=== PATIENT | female | born 1955 | race Caucasian/White ===

== ENCOUNTER → 2018-09-24 08:47 | Outpatient (CLI) | payer OTHER, SELFPAY ==
[2018-09-24 13:16] LABS: Cholesterol 218 mg/dL (200); Glucose 84 mg/dL (74-106); High Density Lipoprotein 62 mg/dL; T4 Free Direct 0.81 ng/dL (0.76-1.46); Thyroid Stim Hormone (TSH) 0.95 uIU/mL (0.358-3.74); Triglycerides 94 mg/dL; Very Low Density Lipoprotein 19 mg/dL (5-40)
== END ==
PROVIDERS: Family Provider Family Medicine; PCP Family Medicine; Visit Provider Family Medicine
DX: F41.9 Anxiety disorder, unspecified (principal); Z13.1 Encounter for screening for diabetes mellitus; Z13.220 Encounter for screening for lipoid disorders
CPT/HCPCS: 36415; 80061; 82947; 84439; 84443

== ENCOUNTER → 2018-11-23 16:06 | Outpatient (CLI) | payer OTHER, SELFPAY ==
[2018-09-29 09:33] VITALS: BMI 28.0
--- NOTE | 2018-11-23 | IMM_PTH ---
PATIENT: IVON LAGUNAS LOC: [facility] U#:[id number] AGE/SX: 70/F ROOM: RE11/23/[address]: Dr. George Karimi MD : 1955 BED: DIS: SPEC #: [id number] RECD: 11/25/18 10:07 STATUS: EZEKIEL REQ #: [id number] ELYSE: 11/23/18 00:[address]: George Karimi DEPT: IMMUNOHISTOCHEMISTRY RECD BY: Loretta Montero ENTERED: 11/25/18 10:09 SP TYPE: IMMUNO OTHR DR: Dr. Jayson Hooks MD Tissues: Left breast, NOS Procedures: CALPONIN-1 (add) CK5-6 (add) CK8 (add) E-CAD (add) HER2 ELIA (add) KI-67 (add) P53 (add) VA (add) P40 (add) ER (initial) PHYSICIAN & INSTITUTION [address] [address] SPECIMEN INFORMATION: Tissue Source: Left breast Clinical Info: Abnormal mammogram Specimen Number: [id number] CPT code: 04386, 99284 x6, 67169 x3 METHODOLOGY: Deparaffinized sections of prefer/formalin-fixed tissue or PAP/DQ stained slides are incubated with monoclonal/polyclonal antibodies/oligonucleotide probes. Localization is made via biotin free immunoperoxidase method. Appropriate controls are performed and reacted as expected. Results on target cell population are indicated in the following table: RESULTS: ANTIBODY / CLONE RESULT P53 (DO-7) positive, 5% Ki-67 (30-9) positive, low CK8 (82vqegZ74) positive CK5-6 (D5 & 1684) negative Calponin-1 (WD221I) negative P40 (BC28) negative E-Cad (ECH-6) positive MORPHOMETRIC ANALYSIS ER (clone 6F11) >95% VA (clone 16/1E2) >95% Her-2Neu (clone CB11) 0 The prognostic test for HER2 is performed on formalin-fixed paraffin embedded tissue. A 3+ (positive) staining pattern is defined as intense, homogeneous, complete, circumferential membranous staining in >10% of contiguous tumor cells. A similar weak (2+) staining pattern is interpreted as equivocal. ALEX follow-up testing is recommended for all equivocal cases. Positivity/negativity for ER/VA is reported if > or < 1% of the tumor cells are immuno- reactive, respectively. The ASCO/CAP criteria is used for scoring. Reference: Journal of Clinical Oncology, 2013; 31:6071-0730 & 2010; 16:9520-0263. Duration of fixation: 28.5 Hrs; Sample Adequate: Yes. These assays have not been validated on decalcified tissues. Results should be interpreted with caution given the likelihood of false negativity on decalcified specimens. These tests were developed and their performance characteristics determined by [facility]. They may not have been cleared or approved by the U.S. Food and Drug Administration. The FDA has determined that such clearance or approval is not necessary. INTERPRETATION: Left breast, ultrasound-guided core biopsy: Invasive ductal carcinoma, nuclear grade 2. Positive for estrogen receptors (favorable prognostic indicator). Positive for progesterone receptors (favorable prognostic indicator). Negative for overexpression of JXN0sut. AM:jose 11/25/18
--- NOTE | 2018-11-23 | BRBX_PTH ---
PATIENT: IVON LAGUNAS LOC: [facility] U#:[id number] AGE/SX: 70/F ROOM: RE11/23/[address]: Dr. George Karimi MD : 1955 BED: DIS: SPEC #: [id number] RECD: 11/23/18 16:00 STATUS: EZEKIEL RETushar #: [id number] ELYSE: 11/23/18 00:[address]: George Karimi DEPT: SURGICAL PATHOLOGY RECD BY: Jareth Spencer ENTERED: 11/24/18 10:08 SP TYPE: BREAST BX OTHR DR: Dr. Jayson Hooks MD Tissues: Left breast, NOS Procedures: Surgery Specimen Level IV HEADER OPERATION: Ultrasound-guided left breast biopsy PRE-OP DIAGNOSIS: Abnormal mammogram TISSUE SUBMITTED: Left breast needle core ISCHEMIC TIME: 2 minutes FIXATION TIME: 28.5 hours MICROSCOPIC DIAGNOSIS Left breast lesion, ultrasound-guided core biopsy: Invasive ductal carcinoma with the following characteristics: Nuclear grade - 2/3 Maximal length - 5 mm Other findings - ductal carcinoma in situ, solid and cribriform type, nuclear grade 2. AM:jose 11/25/18 COMMENT Ductal carcinoma in situ comprises approximately 10% of the total tumor volume (inclusive of invasive carcinoma). ER/MI/Sbl1ysp studies are being performed on sections of tumor and the results from this study will be reported separately ([id number]). Case has been reviewed in consultation with Dr. Lebron who concurs with the above diagnosis. IDC:CIRA MICROSCOPIC DESCRIPTION Slides are reviewed. GROSS DESCRIPTION Received is one container labeled with the patient's name and not further designated. The specimen consists of multiple elongated fragments of rankin-yellow fibroadipose tissue that in aggregate measure 1.5 x 1 x 0.1 cm. The entire specimen is submitted in one cassette. / CIRA:jose 11/24/18 TC:0 CPT: 32622
== END ==
PROVIDERS: Family Provider Family Medicine; PCP Family Medicine; Referring Provider Surgery; Visit Provider Surgery
DX: R92.8 Other abnormal and inconclusive findings on diagnostic imaging of breast (principal)
CPT/HCPCS: 88305; 88341; 88342

== ENCOUNTER 2019-01-24 08:07 | Day surgery (SDC) | payer OTHER, SELFPAY ==
--- NOTE | 2019-01-21 14:29 | HP.PCM_ITS ---
History and Physical Date of Admission: 01/24/19 HISTORY AND PHYSICAL - BREAST CANCER Ana Maria Lal 1955 December 28, 2018 REFERRING PHYSICIAN: Jayson Hooks MD CHIEF COMPLAINT: BREAST CANCER - LEFT - INVASIVE DUCTAL CARCINOMA HPI: Ana Maria is a patient I am following for abnormal left breast imaging. The patient is a 63 year old female with a complaint of an abnormal mammogram. The patient had a mammogram with ultrasound on October 20, 2018 with follow-up imaging on November 17, 2018 which demonstrated: IMPRESSION: HIGHLY SUGGESTIVE OF MALIGNANCY - APPROPRIATE ACTION SHOULD BE TAKEN The 9 mm irregular equal density mass in the left breast is consistent with carcinoma and is highly suggestive of malignancy. An ultrasound guided biopsy is recommended. There is 0.9 cm x 0.7 cm x 0.9 cm irregular mass with an angular margin in the left breast at 11 o'clock posterior depth 9 cm from the nipple. This irregular mass is hypoechoic with an abrupt boundary and posterior acoustic shadowing. This correlates with mammography findings. There is a single borderline thickened lymph node in the axilla. The patient denies a history of breast masses. She does perform a self breast exam routinely. She notes no skin changes. She denies nipple discharge. She notes no axillary masses. She notes no family history of breast problems. She notes no significant breast trauma or breast difficulties in the past. I performed a ultrasound guided core biopsy of the left breast biopsy for her abnormal mammogram on November 23, 2018. The pathology returned as: Invasive ductal carcinoma, grade 2 out of 3. DCIS was also noted in the specimen. Immunohistochemical markers were positive for estrogen progesterone, negative for her HER-2/levi The patient notes some bruising since the procedure. Ultrasound of the left axilla was performed. I felt I was able to demonstrate the lymph node that was somewhat enlarged but this did not look overtly suspicious. We extensively discussed her diagnosis and at the last visit discussed her surgical options including breast conservation surgical procedures, mastectomy without reconstruction and mastectomy with reconstruction. The patient has elected to undergo a left side needle localization biopsy/lumpectomy with sentinel lymph node biopsy with possible axillary dissection. Given the question of a atypical lymph node in the axilla and relatively dense breasts, we elected to obtain breast MRI. This demonstrated: IMPRESSION: SUSPICIOUS FINDING - BIOPSY SHOULD BE CONSIDERED RIGHT BREAST: BI-RADS 4 1. 7mm oval mass in the central / slightly outer breast, posterior depth with persistent kinetics. Second look ultrasound is recommended. If there is no sonographic correlate, MRI guided biopsy is recommended. 2. 5mm focus of enhancement slightly anterior and medial to the above mass with washout kinetics. MRI guided biopsy is recommended. If this finding is not re-demonstrated on the day of biopsy, six month follow up would then be recommended. LEFT BREAST: BI-RADS 4 1. Susceptibility artifact from the biopsy proven carcinoma in the upper inner quadrant, posterior depth. Surgical consult is recommended. 2. 8mm oval mass at 3 o'clock posterior depth with washout and plateau kinetics. Second look ultrasound is recommended. If no correlate is seen, MRI guided biopsy is recommended. 3. 1.0cm linear area of non-mass enhancement with washout kinetics slightly inferior to the above mass. MRI guided biopsy is recommended. 4. Two mildly prominent appearing axillary nodes. Surgical consultation Recommended. Second look ultrasound was obtained which was able to rule out one of the sites but repeat MRI guided biopsies were performed in both the right and left breasts. These demonstrated all benign findings. Specifically the pathology returned as: FINAL DIAGNOSIS 1. Breast, left, superior, MRI-guided core biopsy with hourglass clip placement (A) - Fibrofatty breast tissue with columnar cell change, usual ductal hyperplasia, microcysts, stromal fibrosis and microcalcifications. 2. Breast, left, inferior, MRI-guided core biopsy with cork clip placement (B) - Predominantly benign fibrofatty breast tissue. FINAL DIAGNOSIS Right breast, MRI guided core needle biopsy without hourglass clip placement Predominantly fibroadipose tissue with focal usual ductal hyperplasia, columnar cell change and associated microcalcifications. DEBRA/HILL/jaquan 12/27/2018 PAST MEDICAL HISTORY PAST SURGICAL HISTORY CURRENT MEDICATIONS ALLERGIES: Patient has no known allergies. PERSONAL HISTORY: SOCIAL HISTORY FAMILY HISTORY: FAMILY HISTORY REVIEW OF SYMPTOMS: The review of systems data was entered by the nurse and reviewed by ky Nursing Notes: Cayetano Winslow LPN 12/28/2018 1:49 PM Signed REVIEW OF SYSTEMS: General: The patient notes fatigue, denies weight loss, denies weight gain, denies feeling hot, and denies feelings of cold. Eyes: The patient denies glaucoma, NOTES eye injury/surgery, wears glasses or contacts. Ear/Nose/Throat: The patient denies allergies, denies hayfever, denies ear infections, and denies bloody noses. Cardiovascular: The patient denies chest pain, denies heart disease, denies high blood pressure,denies cardiac stent, denies prior heart attack, denies irregular heart beat, NOTES high cholesterol, denies poor circulation, denies heart failure, other cardiac issues, denies claudication, denies cold feet, denies peripheral arterial stent. Respiratory: The patient denies tuberculosis, denies pneumonia, denies frequent cough, denies pulmonary embolism, denies shortness of breath, and denies cough ing up blood. Gastrointestinal: The patient denies difficulty swallowing, denies acid reflux, denies ulcers, denies vomiting, denies jaundice/hepatitis, denies gallbladder problems, denies black or tarry stools, denies hemorrhoids, denies bleeding from rectum, denies diverticulitis, denies constipation, denies diarrhea, denies loss of stool control, and denies hernias. Kidney/Bladder: The patient denies kidney stones, denies urine infections, and denies bloody urine. Skin: The patient denies a history of skin cancer, denies bleeding/changing moles, and denies a history of skin rash. Neurologic: The patient denies a history of epilepsy/convulsions, denies headaches, denies head/spinal injuries, and denies stroke/TIA. Psychiatric: The patient denies psychiatric medications, denies depression, and denies voices, denies substance abuse. Endocrine: The patient denies thyroid disorders, denies diabetes, and denies hormonal problems. Hematologic: The patient denies a history of bruising, denies bleeding, and denies anemia, denies blood clots. Infections: The patient denies a history of measles and mumps, denies rheumatic fever, and denies sexually transmitted diseases. Musculoskeletal: The patient denies back pain/injury, denies back problems, denies sciatica, denies knee/foot trouble, denies arthritis, or denies gout. PHYSICAL EXAMINATION: General: The patient is 63 year old female, well nourished, well hydrated in no acute distress. The patient is oriented to time, place, and person. VITALS: Blood pressure 138/74, pulse 76, temperature 36.5 ?C (97.7 ?F), temperature source Temporal Artery, height 157.5 cm (5' 2), weight 68.3 kg (150 lb 9.6 oz), SpO2 96 %. Body mass index is 27.55 kg/m?. HEENT: Normal cephalic, ataumatic, pupils are equally round, sclera are ani cteric, mucous membranes are moist, oropharynx is clear. Neck has no masses, asymmetry or lymphadenopathy. Thyroid is unremarkable. Respiratory: Clear to auscultation and percussion. Normal respiratory excursion and pattern. Cardiac: Examination is regular rate and rhythm. Abdominal exam: Soft, nontender, with no palpable masses. No hepatosplenomegaly. No palpable hernias. Rectal exam: exam deferred Extremities: no clubbing, cyanosis or edema. No adenopathy. Breast: Visual inspection reveals no retractions, nipple inversion, or skin changes. Palpation of the right breast reveals no dominant or suspicious masses and there is bruising at the biopsy site. Palpation of the left breast reveals no dominant or suspicious masses and the mass of concern at the 11 oclock position has healed without any further bruising at the biopsy site. The lateral breast biopsy sites have significant bruising at both sites. Axillary exam demonstrates no suspicious masses in either the left or right axilla. There is no nipple discharge expressed from either the left or right breast. LABORATORY VALUES: As Noted RADIOLOGIC STUDIES: As Noted Assessment IMPRESSION: BREAST CANCER - LEFT - INVASIVE DUCTAL CARCINOMA PLAN: I plan to perform a left side needle localization biopsy/lumpectomy with sentinel lymph node biopsy with possible axillary dissection. The planned surgical procedure was discussed extensively with the patient. The risks, benefits, anticipated outcomes and possible complications and alternatives were discussed. My staff has also explained the procedure in understandable terms and the patient was given the option to take printed material concerning the planned procedure. The patient had the opportunity to ask questions concerning the planned procedure. The patient freely consents to the planned procedure. A letter was sent to Dr. Jayson Hooks MD indicating the above finding for this patient. Given her bruising, I will plan to perform her surgical procedure likely at [facility] on January 24. I anticipate that her bruising will have resolved by that time. Anticipated Surgical Procedure/ CPT Code: left preoperative stereotactic guided needle placement - 82991 LUMPECTOMY, WITH SENTINEL LYMPH NODE BIOPSY, Radiotracter identification - [id number], [id number], [id number], [id number], [id number] Anticipated Anesthetic: General Patient weight: Blood pressure 138/74, pulse 76, temperature 36.5 ?C (97.7 ?F), temperature source Temporal Artery, height 157.5 cm (5' 2), weight 68.3 kg (150 lb 9.6 oz), SpO2 96 %. BMI: Body mass index is 27.55 kg/m?. Planned antibiotic: Ancef 2gm IVPB administration vice president to OR SCDs needed - Yes Flame Cutting Supervisor Needed - Yes Diagnoses: (C80.1) Ductal carcinoma (HCC) (primary encounter diagnosis) Return to Clinic: The patient is instructed to follow-up with me 1 week post operatively. George Karimi MD
[2019-01-24] VITALS (10 sets, daily range): BP systolic 116–133; BP diastolic 45–55; PULSE 62–82; RESP 16–18; TEMP 36.2–36.8; O2SAT 94–100; BMI 26.5
--- NOTE | 2019-01-24 | AXNB_PTH ---
PATIENT: IVON LAGUNAS LOC: [facility] [place] U#:[id number] AGE/SX: 64/F ROOM: RE01/24/[address]: Dr. George Karimi MD : 1955 BED: DIS: 01/25/2019 SPEC #: [id number] RECD: 01/24/19 12:01 STATUS: EZEKIEL RETushar #: [id number] ELYSE: 01/24/19 00:[address]: George Karimi DEPT: SURGICAL PATHOLOGY RECD BY: Loretta Montero ENTERED: 01/24/19 12:25 SP TYPE: AX NODE BX OTHR DR: Dr. Jayson Hooks MD Tissues: A - Axillary lymph node, NOS B - Left breast, NOS Procedures: Frozen Section (charge) Frozen Section Add'l ([facility]) Surgery Specimen Level V HEADER OPERATION: Breast, NL lumpectomy, SN biopsy with Neoprobe PRE-OP DIAGNOSIS: Left breast ductal carcinoma TISSUE SUBMITTED: A - Left sentinel node frozen section at 1155, B - Left lumpectomy sent to mammography then to lab, double tail suture - medial, single tail suture - inferior FROZEN SECTION DIAGNOSIS A. Left axillary sentinel lymph nodes, biopsy: Two out of two lymph nodes negative for carcinoma. AM:jose 01/24/19 MICROSCOPIC DIAGNOSIS A. Left axillary sentinel lymph node, biopsy: Two out of two lymph nodes, negative for metastatic carcinoma. See comment. B. Left breast, lumpectomy: Invasive ductal carcinoma. Ductal carcinoma in situ. See cancer summary below. SJ:jose 01/26/19 INVASIVE BREAST CANCER SUMMARY: (Including specimens A & B) Specimen - partial breast Procedure - excision with wire-guided localization. Lymph node sampling - sentinel lymph nodes Specimen integrity - single intact specimen Specimen size - 6 x 5 x 2.5 cm Specimen laterality - left Tumor site - not specified Tumor size - 1.5 x 0.7 x 0.6 cm Tumor focality - single focus of invasive carcinoma Macroscopic and Microscopic extent of tumor: Skin - invasive carcinoma does not invade into the dermis or epidermis. Nipple - not applicable Skeletal muscle - no skeletal muscle present. Ductal carcinoma in situ (DCIS) - DCIS is present. Extensive intraductal component (EIC) - negative Estimated size (extent) of DCIS - DCIS comprise about 10% of the total tumor volume. Number of blocks with DCIS - 2 Number of blocks examined - 10 Architectural patterns - solid, comedo and cribriform Nuclear grade - grade 2 (intermediate) Necrosis - present, central (expansive comedo necrosis) Lobular carcinoma in situ (LCIS) - not identified Histologic type of invasive carcinoma - invasive ductal carcinoma (no special type) Histologic Grade ([place] grade): Glandular/tubular differentiation - score 3 Nuclear pleomorphism - score 2 Mitotic count - score 1 Overall grade - 2 (score of 6) Margins: Margins uninvolved by invasive carcinoma and ductal carcinoma in situ. Invasive carcinoma and ductal carcinoma in situ are 0.7 cm away from the closest medial margin. Lymph-Vascular invasion - not identified Dermal lymph-vascular invasion - not identified Lymph nodes: Number of sentinel lymph nodes examined - 2 Total number of lymph nodes examined (sentinel and nonsentinel) - 2 Number of lymph nodes with macrometastases, micrometastases and isolated tumor cells - 0 Method of evaluation of sentinel lymph nodes - H & E, multiple levels and IHC. Distant metastasis - not applicable Additional pathologic findings - fibrocystic changes and focal intraductal hyperplasia with atypia. Ancillary studies - previously performed on section of tumor (S1 / [id number]). ER - positive (>95%) SD - positive (>95%) Her2 levi - 0 Microcalcifications - present in ductal carcinoma in situ Clinical history - Please make reference to previous specimen (S1) left breast lesion, ultrasound-guided core biopsy with diagnosis of invasive ductal carcinoma and ductal carcinoma in situ. PATHOLOGIC STAGE: pT1c pN0(sn) Mx The above summary is in compliance with [employer] of [place] Path[employer] (CAP) Cancer Protocols Checklist and [place] Joint Committee on Cancer (AJCC), Staging Manual, 8th Ed. COMMENT A. The lymph nodes are negative for metastatic carcinoma on multiple H & E levels and immunohisto-chemical stains for cytokeratins (UR90-219). Case has been reviewed in consultation with Dr. Rodriguez who concurs with the above diagnosis. IDC:AM MICROSCOPIC DESCRIPTION Slides are reviewed. GROSS DESCRIPTION A - Received fresh for frozen section consultation labeled with the patient's name is a specimen designated left sentinel lymph node. The specimen consists of an irregular fragment of rankin-yellow fibrofatty tissue measuring 2.5 x 2 x 0.7 cm. Dissection reveals two nodules resembling lymph nodes and ranging in size from 0.5 to 1.2 cm in greatest dimension. The nodules are submitted in their entirety for frozen section consultation as follows: 1 - one nodule, 2 - one nodule bisected. / AM: 01/24/19 B - Received fresh for OR consultation labeled with the patient's name is a specimen designated left breast lumpectomy. The specimen consists of a lumpectomy specimen measuring 6 x 5 x 2.5 cm and weighing 33.8 gm. An ellipse of skin is present measuring 3 x 1.2 cm and is free of lesions. A wire is present in the specimen. The specimen is differentially inked as follows: anterior - yellow, posterior - green, superior - blue, inferior - black, medial - red and lateral - orange. Serial sections reveal a whitetan spiculated lesion measuring 1.5 x 0.7 x 0.6 cm. The lesion is located 0.7 cm from its closest (medial) margin of excision. The gross is reviewed with the surgeon in person. No other mass lesions are identified. Serial sections of the mass reveal a metallic clip in its mid portion. The remainder of the breast parenchyma is yellow and fatty. No other lesions are identified. Collaborative Physician sections are submitted as follows: 1 & 2 - perpendicular inked margins, 3 - skin, 4 & 5 - tumor, totally submitted, 610??plastic products sales representative sections of uninvolved breast parenchyma. / AM:jose 01/25/19 TC:0 CPT: 19386 x2, 59129, 86363, 07357 ADDENDUM ADDENDUM ADDENDUM ADDENDUM ADDENDUM ADDENDUM ADDENDUM ADDENDUM 02/21/2019 09:51 ADDENDUM 02/21/2019 09:51 ADDENDUM 02/21/2019 09:51 ADDENDUM 02/21/2019 09:51 ADDENDUM 02/21/2019 09:51 An order for Oncotype testing was received from Dr. Banuelos. This necessitated case review, block and slide selection by pathologist at [facility]. Breast Cancer Recurrence Score = 13 Results of the complete Oncotype testing (Criptext report) are viewable in EMR under: Reports - Pathology - Lab Pathology Report, Scanned.
--- NOTE | 2019-01-24 | IMM_PTH ---
PATIENT: IVON LAGUNAS LOC: [facility] [place] U#:[id number] AGE/SX: 64/F ROOM: RE01/24/[address]: Dr. George Karimi MD : 1955 BED: DIS: 01/25/2019 SPEC #: [id number] RECD: 01/26/19 13:33 STATUS: EZEKIEL REQ #: [id number] ELYSE: 01/24/19 00:[address]: George Karimi DEPT: IMMUNOHISTOCHEMISTRY RECD BY: Loretta Montero ENTERED: 01/26/19 13:34 SP TYPE: IMMUNO OTHR DR: Dr. Jayson Hooks MD Tissues: Axillary lymph node, NOS Procedures: CK7 (add) Pankeratin (initial) Pankeratin (add) PHYSICIAN & INSTITUTION [place] [address] SPECIMEN INFORMATION: Tissue Source: A - Left axillary sentinel lymph nodes, biopsy Clinical Info: Left breast ductal carcinoma Specimen Number: [id number] A1 & A2 CPT code: 93270, 26827 x3 METHODOLOGY: Deparaffinized sections of prefer/formalin-fixed tissue or PAP/DQ stained slides are incubated with monoclonal/polyclonal antibodies/oligonucleotide probes. Localization is made via biotin free immunoperoxidase method. Appropriate controls are performed and reacted as expected. Results on target cell population are indicated in the following table: RESULTS: ANTIBODY / CLONE RESULT Block A1 AE1-3 (AE1/AE3/PCK26) negative CK7 (OV-TL12/30) negative Block A2 AE1-3 (AE1/AE3/PCK26) negative CK7 (OV-TL12/30) negative These tests were developed and their performance characteristics determined by [facility]. They may not have been cleared or approved by the U.S. Food and Drug Administration. The FDA has determined that such clearance or approval is not necessary. INTERPRETATION: A. Left axillary sentinel lymph nodes, biopsy: Two out of two lymph nodes, negative for metastatic carcinoma. SJ:jose 01/27/19
--- NOTE | 2019-01-24 08:30 | NM_ITS ---
PROCEDURE: NUCLEAR MEDICINE Injection [place] Node - LEFT breast(s). REASON FOR EXAM: Female, 64 years old. Left breast cancer. TECHNIQUE: [place] node localization using radionuclide methods of the LEFT breast(s) was performed following subcutaneous administration of 1.2 mCi of of sulfur colloid Tc-99m. FINDINGS: 1.2 mCi of technetium labeled sulfur colloid was injected subcutaneously in 4 equal aliquots in the medial periareolar region. NM/Lymph Node Injection Only IMPRESSION: 1.2 mCi of technetium labeled sulfur colloid was injected subcutaneously for sentinel node imaging. Electronically Signed: Jose Ty, at 10:10 EDT , Service support ,
--- NOTE | 2019-01-24 09:19 | BI_ITS ---
SURGICAL BREAST SPECIMEN RADIOGRAPH CLINICAL: Document presence of tissue clip marker in biopsy specimen. FINDINGS: Specimen shows presence of tissue clip marker. Electronically Signed: Jose Ty, at 13:02 EDT , Service support , BI/Breast Biopsy Specimen
[2019-01-24] MEDS: Cefazolin 2 GM in 0.9% Normal Saline 100 ML IV (11:08)
[2019-01-24] MEDS: Isosulfan Blue 1% 5 ML Vial (11:20)
[2019-01-24] MEDS: Bupivacaine Mpf 0.5% 30 ML VIAL (12:26)
--- NOTE | 2019-01-24 12:38 | PCM.OPRPT ---
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 Her left breast was positioned in the CC approach in the [place] stereotactic table. Mammogram image demonstrated the clip to be nicely centered. Stereotactic images were obtained. Planned placement of the wire was marked and an additional 15 mm of depth added to the prescribed depth. The breast was then cleaned with Betadine. Local anesthetic was injected in the breast and a 15 Kopan's wire was inserted to the prescribed depth. Stereotactic images demonstrated good positioning of the wire. The wire was deployed as an needle was withdrawn. Stereotactic images demonstrated good positioning of the wire. The breast was marked compression the wire cut to length and taped. CC and MLO views were then obtained. The patient had previously undergone injection of radiotracer in the radiology department. The patient was then brought to the operative suite. Sign was performed verifying patient, site, position, SCIP antibiotic prophylaxis-2 g of Ancef and DVT prophylaxis with SCDs. Following an LMA anesthesia, 5 cc of a 50-50 mixture of lymphazurin blue and normal saline was injected into sappey's plexus. The breast was then massaged. Evaluation of the axilla with the neoprobe demonstrated an area of activity in the low axilla just lateral to the pectoralis muscle. This site was marked. Ultrasound was also used to evaluate the area of the tumor. The mass on ultrasound was noted to be approximately 1cm deep to the skin approximately two thirds [address] the way deep towards the pectoralis muscle and the body of the tumor seemed somewhat lateral to the 11:00 position. This was marked on the skin site. The patient?s left breast, axilla right arm and neck were then prepped and draped in the usual fashion. Timeout was performed verifying patient, site, position. Local anesthetic was injected at the marked site and the incision made in the low anterior axilla. Dissection carried down through subcutaneous tissues. A blue lymphatic duct was identified and tracked back to the sentinel lymph node which turned nicely blue. This node was then dissected free from the surrounding structures. After was removed, it was evaluated with the neoprobe and contained approximately 160 counts. The neoprobe was then used to assess the axilla through the incision. No additional lymph nodes were palpated. A small clip was placed along the proximal blue lymphatic duct. There was good hemostasis in the small sentinel node dissection area. Subcutaneous tissues closed with interrupted 3-0 Vicryl suture. Skin was closed with a running 4-0 Biosyn subcuticular suture. Verbal report from the pathologist demonstrated negative left sentinel lymph node. Attention was then turned to the lumpectomy specimen. The wire entered the breast at the 11:00 position. An elliptical incision was made and dissection carried down to subcutaneous breast tissue and then flared out such that a good margin would be obtained in all axes. The breast tissue was taken down to the pectoralis fascia. When the specimen was removed, the wire came from the superficial cranial site. A solitary suture was placed at the inferior location. A double tail suture was placed along the medial aspect of the specimen. The specimen was oriented on a radiographic plate and sent for specimen radiograph. While we?re awaiting specimen radiograph, the cavity was irrigated with sterile water and aspirated. There was noted to be good hemostasis. 4 medium clips were placed at the deep cavity margins and 4 small clips at the superficial cavity margins oriented the cavity for future radiation treatment. Subcutaneous breast tissue closed with interrupted 3-0 Vicryl suture. Skin was closed with a running 4-0 Biosyn subcuticular suture. Specimen radiograph demonstrated good position of the clip relative to the biopsy site. The specimen was then brought to the pathology department. I oriented the specimen with the pathologist. Gross margins were examined and felt to be at least 0.7 cm. Given this, Dermabond was applied to the skin the patient was awakened and brought to recovery in stable condition.
[2019-01-24] MEDS: Lactated Ringers 1,000 ML 42 ML IV (13:40)
[2019-01-24] MEDS: Ibuprofen 400 MG Tablet PO (16:56)
[2019-01-24] MEDS: Temazepam 15 MG Capsule 30 MG PO (22:47)
[2019-01-25 02:02] VITALS: BP 135/52; PULSE 64; RESP 18; TEMP 36.4; O2SAT 98
[2019-01-25 09:20] VITALS: BP 100/46; PULSE 74; RESP 16; TEMP 36.6; O2SAT 98
[2019-01-25] MEDS: Ibuprofen 400 MG Tablet PO (13:46)
--- NOTE | 2019-01-25 15:38 | DCINST_ITS ---
Discharge Diet: No Restrictions Discharge Activity: May Drive May shower in (days): 1 Lifting Restrictions: 10 pounds for 1 week. Call your doctor if your incision/area has: Continuous Slow Oozing, Sudden Increased Bleeding Call your doctor if you observe: Fever of 101 or Higher Suture Line Care: Avoid Pulling/Pushing, Avoid Pinching/Bending Remove Dressing in (days):: 1 - Remove bulky dressing tomorrow. May leave any opsite dressing for 3-4 days. Keep dressing in place until your follow-up appointment. Additional Dressing/Incision Instructions:: Leave dermabond in place Allergies/Adverse Reactions: Allergies No Known Allergies Allergy (Verified 01/17/19 11:04) Medications to take at Discharge Ascorbic Acid [Vitamin C] 500 mg PO BIDCM 01/17/19 Calcium Carbonate/Vitamin D3 [Calcium 600 + Vit D Tablet] 1 each PO BID 01/17/19 Multivit-Min/Iron/Folic/Lutein [Centrum Silver Women Tablet] 1 each PO DAILY 01/17/19 [place]-3 Fatty Acids/Fish Oil [Fish Oil 1,000 mg Capsule] 1 each PO BID 01/17/19 Temazepam [Restoril] 30 mg PO QHS PRN PRN 01/24/19 Oxycodone [Oxyir] 5 - 10 mg PO Q4H PRN PRN 7 Days #8 tab 01/25/19 The following prescriptions were given: Oxycodone [Oxyir] 5 - 10 mg PO Q4H PRN PRN 7 Days #8 tab PRN Reason: Pain Primary Care Physician: Jayson Hooks MD [Primary Care Provider] - Please Follow Up With: George Karimi MD When: follow up in one week
--- NOTE | 2019-01-25 18:35 | PCM.DC.SUM ---
Discharge Date and Diagnosis Date of Admission: 01/24/19 Date of Discharge: 01/25/19 - Primary Discharge Diagnosis left breast cancer Hospital Course and Treatment Operations: - - left needle localization lumpectomy and sentinel lymph node biopsy Summary of Care Provided: The patient is a 64 year old F within upper inner quadrant left breast cancer. The patient underwent a sentinel lymph node biopsy which returned as to tentatively negative lymph nodes and a needle localization lumpectomy which demonstrated good margins. The patient did well overnight with no swelling in either incision site or signs of hematoma infection or other complications. She was going to be discharged today. - Physical Exam General: Alert, Oriented x3, Cooperative Lungs: Clear to auscultation, Normal air movement Cardiovascular: Regular rate, No murmurs Skin: - - left axillary left skin incision intact. Vital Signs Temp Pulse Resp BP Pulse Ox 97.9 F 74 16 100/46 L 98 01/25/19 09:20 01/25/19 09:20 01/25/19 09:20 01/25/19 09:20 01/25/19 09:20 Oxygen Delivery Method Room Air Weight: 65.8 kg Body Mass Index (BMI) 26.5 Intake and Output for Last 24 Hours 01/23/19 01/24/19 01/25/19 23:59 23:59 23:59 Intake Total 113 / 113 1122 / 1122 Output Total 300 / 300 600 / 600 Balance -187 / -187 522 / 522 Discharge Diet: No Restrictions Discharge Activity: May Drive May shower in (days): 1 Call your doctor if your incision/area has: Continuous Slow Oozing, Sudden Increased Bleeding Call your doctor if you observe: Fever of 101 or Higher Suture Line Care: Avoid Pulling/Pushing, Avoid Pinching/Bending Remove Dressing in (days):: 1 - Remove bulky dressing tomorrow. May leave any opsite dressing for 3-4 days. Keep dressing in place until your follow-up appointment. Additional Dressing/Incision Instructions:: Leave dermabond in place Home Medications: Medications to take at Discharge Ascorbic Acid [Vitamin C] 500 mg PO BIDCM 01/17/19 Calcium Carbonate/Vitamin D3 [Calcium 600 + Vit D Tablet] 1 each PO BID 01/17/19 Multivit-Min/Iron/Folic/Lutein [Centrum Silver Women Tablet] 1 each PO DAILY 01/17/19 [place]-3 Fatty Acids/Fish Oil [Fish Oil 1,000 mg Capsule] 1 each PO BID 01/17/19 Temazepam [Restoril] 30 mg PO QHS PRN PRN 01/24/19 Oxycodone [Oxyir] 5 - 10 mg PO Q4H PRN PRN 7 Days #8 tab 01/25/19 Following Prescrptions Were Given to Patient: Oxycodone [Oxyir] 5 - 10 mg PO Q4H PRN PRN 7 Days #8 tab PRN Reason: Pain Primary Care Physician: Jayson Hooks MD [Primary Care Provider] - Please Follow Up With: George Karimi MD When: follow up in one week Medical Necessity - Tobacco Use Smoking Status: Never smoker Tobacco Use: Non-smoker Meaningful Use Info Meaningful Use Diagnoses (Choose all that apply): None applicable
== END 2019-01-25 16:19 | disposition home or self-care (01) ==
LOC: SDC 08:08 → AC 08:10 → MS3 13:49
PROVIDERS: Family Provider Family Medicine; PCP Family Medicine; Referring Provider Surgery; Visit Provider Surgery
PROC: (CPT 19301; principal; 2019-01-24 10:00)
DX: C50.212 Malignant neoplasm of upper-inner quadrant of left female breast (principal); D05.12 Intraductal carcinoma in situ of left breast
CPT/HCPCS: 00400; 19301; 38500; 19281; 38792; 76098; 88305; 88307; 88331; 88332; 88341; 88342; A9541; J7120; J2405; J3490; Q9968

== ENCOUNTER → 2022-09-23 | Outpatient (CLI) | payer MEDICARE, BC, SELFPAY ==
--- NOTE | 2022-09-23 13:45 | MRI_ITS ---
EXAM: MR RIGHT LOWER EXTREMITY WITHOUT INTRAVENOUS CONTRAST, HIP CLINICAL INDICATION: RIGHT hip pain TECHNIQUE: Multiplanar and multisequence MR images of the right hip without intravenous contrast. This report was created using [employer] report [employer] technology. COMPARISON: None. FINDINGS: TENDONS: FLEXORS: Unremarkable. Intact. EXTENSORS/HAMSTRING: Unremarkable. Intact. ABDUCTORS: Unremarkable. Intact. ADDUCTORS: Unremarkable. Intact. ROTATORS: Unremarkable. Intact. MUSCLES: Unremarkable. Normal bulk and signal. FLUID: Large right-sided hip joint effusion with synovitis. Findings are concerning for possible septic arthritis. This can be further desiccated with direct aspiration. No trochanteric bursitis. LABRUM: No definite acetabular labral tearing. CARTILAGE: Unremarkable. Articular cartilage intact. BONES/JOINTS: Marrow signal alterations are seen involving the femoral head or neck. This may be reactive or could represent osteomyelitis. There is also some marrow signal alteration with similar differential considerations involving the right acetabular roof. No avascular necrosis of the femoral head. No sacral insufficiency fracture. Degenerative changes of the spine are incompletely imaged. OTHER SOFT TISSUES: Unremarkable. MRI/Lower Ext Joint Only (Routine) IMPRESSION: 1. Large right-sided hip joint effusion with synovitis. Findings are concerning for possible septic arthritis. This can be further desiccated with direct aspiration. 2. Marrow signal alterations are seen involving the femoral head or neck. This may be reactive or could represent osteomyelitis. There is also some marrow signal alteration with similar differential considerations involving the right acetabular roof. Electronically Signed: Zeb Davis MD at 3:17 EST ,
== END | disposition home or self-care (01) ==
LOC: MRI 13:11
PROVIDERS: PCP Family Medicine; Referring Provider Family Medicine; Visit Provider Family Medicine
DX: S73.191A Other sprain of right hip, initial encounter (principal)
CPT/HCPCS: 73721

== ENCOUNTER → 2022-09-29 | Outpatient (CLI) | payer MEDICARE, BC, SELFPAY ==
[2022-09-29 18:21] LABS: Absolute Lymphocyte Count 1.11 X10^3/uL (0.83-4.51); Absolute Neutrophil Count 4.2 X10^3/uL (2.0-7.7); Basophil# 0.03 X10^3/uL; Basophil% 0.5 % (0-1); Eosinophil# 0.28 X10^3/uL; Eosinophils% 4.6 % (0-5); Hematocrit 38.6 % (37-47); Hemoglobin 12.3 g/dL (12.0-15.0); Lymphocyte # 1.11 X10^3/ul (0.83-4.51); Lymphocyte % 18.1 % (19-41); Mean Corp Hgb Conc 31.9 g/dL (32-36); Mean Corpuscular Hgb 28.7 pg (27.0-32.0); Mean Platelet Vol. 10.8 fl (6.2-12.0); Monocyte# 0.52 X10^3/uL; Monocyte% 8.5 % (0-10); NRBC Flagged by Analyzer 0 % (0-5); Neutrophil # 4.17 X10^3/uL (2.7-7.7); Neutrophil % 68.1 % (47-70); Platelet Count 314 K/mm3 (150-450); RBC Distribution Width CV 12.4 % (11.6-14.6); RBC Distribution Width SD 40.7 fl (35.1-43.9); Red Blood Count 4.29 M/mm3 (4.2-5.4); White Blood Count 6.1 K/mm3 (4.4-11.0)
[2022-09-29 18:34] LABS: Uric Acid 4.7 mg/dL (2.6-6.0)
[2022-09-29 18:42] LABS: Erythrocyte Sedimentation Rate 17 mm/hr (0-30)
== END | disposition home or self-care (01) ==
LOC: MTLAB 15:11
PROVIDERS: PCP Family Medicine; Visit Provider Orthopaedic Surgery
DX: N30.01 Acute cystitis with hematuria (principal); M16.11 Unilateral primary osteoarthritis, right hip; M65.9 Synovitis and tenosynovitis, unspecified; M25.451 Effusion, right hip
CPT/HCPCS: 36415; 84550; 85025; 85652; 86140

== ENCOUNTER → 2022-10-02 | Outpatient (CLI) | payer MEDICARE, BC, SELFPAY ==
--- NOTE | 2022-10-02 09:25 | RAD_ITS ---
PROCEDURE: Fluoroscopic guided right hip aspiration. DATE: 10/02/2022. INDICATION: Female, 67 years old. Right hip pain. No known injury. PHYSICIAN: Jose Ty M.D. ACCESS SITE: Right hip. NEEDLE: 22-gauge spinal needle. FLUOROSCOPY TIME (if supplied): (0:27) minutes/seconds. One image was obtained. FINDINGS: The risks, benefits, and alternatives to the procedure were explained to the patient. The specific risks of bleeding, infection, and neurovascular injury were detailed and accepted. Witnessed informed consent was obtained. A 22-gauge spinal needle was positioned under radiographic fluoroscopic localization. Aspiration was performed. No aspirate was withdrawn. Approximately 2 cc of ISOVUE-300 instilled for localization purposes. The patient tolerated the procedure well without any immediate complications. RAD/Inj/Asp Ubaldo Jt Should/Hip/Knee IMPRESSION: 1. Successful fluoroscopic guided hip aspiration. No fluid was aspirated. Electronically Signed: Jose Ty MD at 10:33 EST ,
[2022-10-02] MEDS: Lidocaine 2% (5ml sdv) 5 ML VIAL.MPF INFILT (10:03)
== END | disposition home or self-care (01) ==
LOC: RAD 09:08
PROVIDERS: PCP Family Medicine; Referring Provider Orthopaedic Surgery; Visit Provider Orthopaedic Surgery
DX: M25.451 Effusion, right hip (principal); M65.9 Synovitis and tenosynovitis, unspecified; M16.11 Unilateral primary osteoarthritis, right hip
CPT/HCPCS: 20610; 77002; Q9967

== ENCOUNTER → 2023-03-09 | Outpatient (CLI) | payer MEDICARE, BC, SELFPAY ==
--- NOTE | 2023-03-09 13:46 | CT_ITS ---
EXAM: CT BILATERAL LOWER EXTREMITIES WITHOUT INTRAVENOUS CONTRAST CLINICAL INDICATION: templating for right ANJU TECHNIQUE: Helically acquired images were obtained of the bilateral lower extremities without intravenous contrast. 2-D reformats were performed by the technologist. CTDIvol = ( 13.3 ) mGy, DLP = ( 886.61 ) mGycm This CT exam was performed using one or more of the following dose reduction techniques: automated exposure control, adjustment of the mA and/or kV according to patient size, and/or use of iterative reconstruction technique. This report was created using [employer] report [employer] technology. COMPARISON: None. FINDINGS: BONES/JOINTS: Presurgical planning study performed for right total hip arthroplasty. Severe right hip osteoarthrosis with flattening of the right femoral head contour as well as extensive cystic changes on both sides of the articulation. Mild to moderate left hip osteoarthrosis. Degenerative changes of the lower lumbar spine are incompletely imaged. Degenerative changes of the SI joints and pubic symphysis. Right greater trochanteric enthesopathy noted. No acute fracture. No subluxation. Normal alignment. No other unusual lytic or sclerotic lesions of bone. No significant knee joint effusion bilaterally. SOFT TISSUES: Extremities muscles and neurovascular structures are unremarkable. No soft tissue swelling or gas. No radiopaque foreign body. BLADDER: Unremarkable. No stones. No free fluid in the pelvis. No inflammatory or obstructive changes of bowel. Bladder and uterus are unremarkable. No adnexal masses. OTHER FINDINGS: No mass is identified. CT/Extremity Lower without Contra IMPRESSION: Severe right hip osteoarthrosis with flattening of the right femoral head contour as well as extensive cystic changes on both sides of the articulation. Electronically Signed: Zeb Davis MD at 21:12 EDT ,
== END | disposition home or self-care (01) ==
LOC: CT 13:44
PROVIDERS: PCP Family Medicine; Referring Provider Orthopaedic Surgery; Visit Provider Orthopaedic Surgery
DX: M16.11 Unilateral primary osteoarthritis, right hip (principal)
CPT/HCPCS: 73700

== ENCOUNTER 2023-04-07 05:27 | Day surgery (SDC) | payer MEDICARE, BC, SELFPAY ==
--- NOTE | 2023-03-24 10:21 | EKG12_ITS ---
Test Reason : PREOP Blood Pressure : / mmHG Vent. Rate : 058 BPM Atrial Rate : 058 BPM P-R Int : 120 ms QRS Dur : 074 ms QT Int : 402 ms P-R-T Axes : 044 058 048 degrees QTc Int : 394 ms Sinus bradycardia Otherwise normal ECG Confirmed by CARLOS RODRIGUEZ, MELISSA ([id number]), supervising editor news reel SHIRIN MARES ([id number]) on 03/25/2023 11:39:42 A M Referred By: Cayetano Wetzel Confirmed By:NATHANIEL GONZALEZ MD
[2023-03-24 11:24] LABS: Absolute Lymphocyte Count 0.82 X10^3/uL (0.83-4.51); Basophil# 0.02 X10^3/uL; Basophil% 0.4 % (0-1); Eosinophil# 0.18 X10^3/uL; Eosinophils% 3.3 % (0-5); Hematocrit 39.1 % (37-47); Hemoglobin 11.9 g/dL (12.0-15.0); Lymphocyte # 0.82 X10^3/ul (0.83-4.51); Mean Corp Hgb Conc 30.4 g/dL (32-36); Mean Corpuscular Hgb 27.9 pg (27.0-32.0); Mean Corpuscular Volume 91.8 fL (81-99); Mean Platelet Vol. 10.4 fl (6.2-12.0); Monocyte# 0.43 X10^3/uL; Monocyte% 7.8 % (0-10); NRBC Flagged by Analyzer 0 % (0-5); Neutrophil # 4.02 X10^3/uL (2.7-7.7); Neutrophil % 73.3 % (47-70); Platelet Count 299 K/mm3 (150-450); RBC Distribution Width CV 13.8 % (11.6-14.6); RBC Distribution Width SD 46.8 fl (35.1-43.9); Red Blood Count 4.26 M/mm3 (4.2-5.4); White Blood Count 5.5 K/mm3 (4.4-11.0)
[2023-03-24 11:33] LABS: Partial Thromboplast Time 26.6 Seconds (24.1-36.2)
[2023-03-24 11:41] LABS: Hemoglobin A1c 5.3 % (3.8-5.6)
[2023-03-24 11:43] LABS: Magnesium 2.3 mg/dL (1.6-2.6)
[2023-03-24 11:45] LABS: Anion Gap 4 (5-15); BUN 22 mg/dL (7-18); BUN/Creat Ratio 25.7 RATIO (10-20); Calcium,Total 9.7 mg/dL (8.5-10.1); Chloride 107 mmol/L (98-107); Creatinine, Serum 0.86 mg/dL (0.55-1.02); EST Glomerular Filtration Rate 70 mL/min (>60); Est Glom Filt Rate - Afr Amer 85 mL/min (>60); Glucose 76 mg/dL (74-106); Potassium 4.3 mmol/L (3.5-5.1); Sodium Level 140 mmol/L (136-145)
[2023-03-25 04:07] LABS: Fructosamine 227 umol/L (0-285)
[2023-04-07] VITALS (10 sets, daily range): BP systolic 80–160; BP diastolic 40–79; PULSE 55–65; RESP 15–20; TEMP 36.2–36.4; O2SAT 95–100; BMI 27.3
[2023-04-07] MEDS: Lactated Ringers 1,000 ML 999 ML IV (06:04)
[2023-04-07] MEDS: Magnesium 1 GM over 15 mins IV (06:05)
[2023-04-07] MEDS: Acetaminophen 500 MG Tablet 1000 MG PO ×2 (06:24→14:42)
[2023-04-07] MEDS: Gabapentin 600 MG Tablet PO (06:25)
[2023-04-07] MEDS: Celecoxib 200 MG Capsule 400 MG PO (06:25)
[2023-04-07] MEDS: Scopolamine 1mg/72hr Patch 1 PATCH TD (06:26)
[2023-04-07] MEDS: Lactated Ringers 1,000 ML 75 ML IV (07:06)
--- NOTE | 2023-04-07 07:06 | PCM.HP.BLA ---
History and Physical Date of Admission: 04/07/23 [facility] [address] [place] [address] OFFICE VISIT Date of Service:? 02/18/23 MR#: [id number] Acct: [id number] Name:IVON REYNOLDS Rep #: [id number] : 1955 ? ? Provider: Dr. Cayetano Wetzel, DO Age/Sex:? 68/F ? ? Location: [facility] [place] Status: Signed Intake Vital Signs ? 02/18/2313:04 Height 5 ft 2 in Weight: 150 lb BMI 27.4 Intake Visit Reasons:?RIGHT HIP Chief Complaint: right hip Accompanied by: Self Is patient in pain?: Yes Allergies No Known Allergies Allergy (Verified 10/22/22 13:04) Medications ascorbic acid (vitamin C) 500 mg tablet 500 mg PO BIDCM 01/17/19 [History Confirmed 02/18/23] calcium carbonate-vitamin D3 600 mg-125 unit tablet 1 ea PO BID 01/17/19 [History Confirmed 02/18/23] multivit with mhwahtps-ccye-CC-lutein 8 mg iron-400 mcg-300 mcg tablet 1 ea PO DAILY 01/17/19 [History Confirmed 02/18/23] omega-3 fatty acids-fish oil 340 mg-1,000 mg capsule 1 ea PO BID 01/17/19 [History Confirmed 02/18/23] temazepam 30 mg capsule 30 mg PO QHS PRN PRN Sleep 01/24/19 [History Confirmed 02/18/23] anastrozole 1 mg tablet tablet PO 09/29/22 [History Confirmed 02/18/23] fluoxetine 40 mg capsule 40 mg PO 09/29/22 [History Confirmed 02/18/23] trazodone 50 mg tablet tablet PO 09/29/22 [History Confirmed 02/18/23] PFSH Medical History?(Updated 10/22/22 @ 14:01 by Walter SAN, PA) Hx of breast cancer Hx of radiation therapy Surgical History?(Updated 02/18/23 @ 13:11 by Betty Rodriguez) History of bunionectomy History of lumpectomy of left breast Hx of thumb surgery Social History? Smoking Status:? Never smoker alcohol intake:? current alcohol intake frequency: a few times a week Alcohol type: wine HPI RIGHT HIP Details: Parts of this documentation were recorded by a scribe, this documentation accurately reflects the service provided and the decisions made by me, Dr. Cayetano Wetzel, DO 02/18/23 2805. IVON LAGUNAS is a 68 year old F here today for? right hip pain that she has been having for over 1 year. She did have a right greater troch bursa injection in 10/2022 which she states was helpful with the lateral sided hip pain she continued to have groin pain. Denies any PT. She did see pain management and had a right intra-articular hip injection around 11/2022 which was somewhat helpful with her pain. Today she has increased pain with WB and she has pain over the outer right groin that radiates down the anterior thigh. Denies any pain past the knee. Denies numbness, tingling or other associated symptoms. She also has lateral right hip pain. She does have occasional pain over the posterior hip but this is not her biggest concern. She has increased pain with getting in and out of a car. She states that when she bends over she has cracking in the hip. Denies any fevers or chills or recent infections. Preferes to have foot in externally rotated posture. She did have a fall in [place] and has an abrasion to the left anterior lower leg. Hx of breast cancer. Had radiation in 2019 and lumpectomy. Is still taking Anastrozole for 1 more year which is a hormone based chemotherapy drug. Ortho Exam General General: Yes no acute distress Neurologic: Yes alert and Yes oriented x3 Psychologic: Yes reasonable and appropriate Right Hip Skin: Yes CDI, No Ecchymosis, No soft tissue swelling and No Erythema Special Tests: Yes TTP Greater Troch Homans Sign: No HIP: No masses erythema ecchymosis or concern around the? hip area right foot bunion with scar from prior surgery 4/5 hip flexion and pain with resisted hip flexion 0 internal rotation with pain 10 external rotation with pain limited extension of right great toe 5/5 dorsi/plantar flexion Hip range of motion causes significant anterior thigh and groin pain and is very limited Head: Normocephalic Atraumatic Chest: symmetrical rise, non-labored breathing, no audible wheeze Abdomen: no guarding, non-rigid Supplemental Info 02/18/2023 x-ray right hip: 09/29/2022 x-ray right hip severe superior joint space narrowing: Coding Level of Care Code Off vis,est,level 3 Diagnoses Osteoarthritis of right hip? M16.11 Assessment and Plan Assessment and Plan (1) Osteoarthritis of right hip: ?Status:?Acute ? ? ? Orders: Orders HIP, UNI W/ Pelvis 2-3 Views Today M16.11 - Unilateral primary osteoarthritis, right hip ? Plan Obtained X-rays of patient's right hip. Personally reviewed x-rays. There is no obvious fracture, dislocation, or lucency noted. Patient educated that her arthritis has progressed even from the xrays in 09/2022. She has tried and failed a right intra-articular hip injection. Other nonsurgical treatment options are do nothing or PT or NSAIDs. Her surgical option is a right ANJU.?Risks, benefits and alternatives of surgery reviewed including but not limited to bleeding, infection, nerve, foot drop, artery and/or tissue damage, fracture, VTE, leg length discrepancy, dislocation, need for hip precautions, continued pain and expected post-operative course.?Patient wishes to proceed with right ANJU. Educated that she will have hip precautions following surgery. Recovery time is typically 2-3 months and she can continue to improve for up to 2 years post op. Spoke about prophylactic ATBs she will need with dental work. No dental work until 3 months post op. She wants to proceed with surgery CHIP. She would be scheduled as a same day surgery, she doesn't have any stairs at home. Follow up 2 weeks post op or sooner if pain, swelling, numbness or associated symptoms, or concerns develop.? All questions answered. Patient in agreement of plan.? She is to hold all NSAIDs for a week before and 3 weeks after surgery. 02/18/23 1407 <Electronically signed by Cayetano Wetzel DO> Date Cayetano Wetzel DO I have examined the patient and the H&P has been reviewed. There are no clinical changes since date of exam.
[2023-04-07] MEDS: Cefazolin 2 GM in 0.9% Normal Saline 100 ML IV (07:27)
[2023-04-07 07:30] LABS: Bedside Glucose 80 mg/dL (74-106)
[2023-04-07] MEDS: Lactated Ringers 1,000 ML 125 ML IV ×2 (07:30→11:03)
--- NOTE | 2023-04-07 07:30 | HIP_PTH ---
PATIENT: IVON LAGUNAS LOC: [facility] [place] U#:[id number] AGE/SX: 68/F ROOM: RE04/07/[address]: Dr. Cayetano Wetzel DO : 1955 BED: DIS: 04/07/2023 SPEC #: [id number] RECD: 04/07/23 14:20 STATUS: EZEKIEL RETushar #: [id number] ELYSE: 04/07/23 07:[address]: Cayetano Wetzel DEPT: SURGICAL PATHOLOGY RECD BY: Angel Cleary ENTERED: 04/08/23 09:28 SP TYPE: TOTAL HIP OTHR DR: Dr. Miranda Acuna MD Tissues: Hip, NOS Procedures: Decalcification bone/plaque Surgery Specimen Level IV HEADER OPERATION: ERAS, total hip replacement robotic arm assist PRE-OP DIAGNOSIS: Osteoarthritis of right hip TISSUE SUBMITTED: Right hip bone and tissue MICROSCOPIC DIAGNOSIS Bone and tissue of right hip, total hip resection: Severe degenerative joint disease. AM:jose 04/10/2023 MICROSCOPIC DESCRIPTION Slides are reviewed. GROSS DESCRIPTION Received is one container labeled with the patient's name and designated right hip bone and tissue. The specimen consists of a distorted femoral head measuring 5.0 x 3.5 x 4.0 cm. The articular surface displays prominent osteophyte formation, eburnation and bone erosion. Also present free in the specimen container are multiple irregular fragments of bone and bone reamings measuring in aggregate 7.0 x 6.0 x 1.0 cm. Research Pharmacist sections are submitted in two cassettes after decalcification as follows: 1 - femoral head, 2 - bone reamings. / AM:jose 04/08/2023 TC:5 CPT: 32088, 22244
[2023-04-07] MEDS: dexAMETHasone 10 MG/ML Vial IV (07:57)
--- NOTE | 2023-04-07 10:04 | PCM.OP.BLANK ---
Operative Report Date of Procedure: 04/07/23 Preoperative diagnosis: Right hip DJD Postoperative diagnosis: Same Procedure: CT-guided Makoplasty assisted right total hip arthroplasty Implants: Miguel Accolade II stem size 3, 127 degree neck angle +4 neck length 48 mm Trident II acetabular shell with 35 mm cancellous screw 32mm ceramic head, Trident X3 polyethylene insert. Anesthesia: Spinal EBL: 175 cc Complications: None Condition: Stable to PACU Medical Chief Technician Walter Maher. My physician certified medical assistant was a vital part of this case. He was important in appropriate retraction during the case, and protection of soft tissues during procedure. His intimate knowledge of the case and my steps aided in safe and expedient completion of the procedure as well as appropriate position of the extremity during the case. He was also vital in assisting with closure under my direct supervision. Indication for procedure: This is a 68-year-old female who has had long-standing arthrosis of the hip who has failed conservative treatment and wished to undergo total hip arthroplasty. We did discuss operative versus nonoperative intervention including risks of bleeding, infection , nerve artery tissue damage, need for further surgery, fracture, leg length discrepancy dislocation blood clot and need for postoperative physical therapy and postoperative expectations. An informed consent was signed. Procedure: Patient was met in the preoperative holding area once again the operative extremity was identified by both patient and physician and was marked. Patient was met by anesthesia . Anesthesia was started. patient was then positioned in the lateral decubitus position on a well-padded pegboard with an axillary roll. All bony prominences were checked and padded. The patient was prepped and draped in the usual sterile fashion. A timeout was called to ensure the proper patient procedure and extremity were being contemplated. Anatomic landmarks were palpated and marked for a standard posterior lateral approach. Prior to this the ASIS was palpated and 3 fingerbreadths proximal to this 3 pins were placed at a 45 degree angle into the iliac crest with good purchase, stab incisions were made with a 15 blade into the skin prior to placement. The Makoplasty array was then secured. A 10 blade scalpel was used to make a posterior incision through the skin and subcutaneous tissue. retractors were used and electrocautery was used to maintain meticulous hemostasis and dissect full-thickness flaps until the gluteal fascia was reached. The gluteal fascia was incised in line with the gluteal fibers. The bursal tissue was then freed from the underside and a Charnley retractor was placed. The femoral trochanteric checkpoint was placed and leg length was assessed using the trochanteric checkpoint and an EKG lead that was placed on the knee prior to prepping the leg .the fat pad was then elevated off of the external rotators with electrocautery and the external rotators were dissected off of the greater trochanter including the piriformis and were tagged with #1 Ethibond for later repair. The joint capsule opened with posterior trapdoor technique. The hip was surgically dislocated. The measurement on the preoperative CT from the top of the lesser trochanter to the femoral neck cut was marked Hohmann was placed around the lesser trochanter. A neck cutting guide was used to jorge the neck with a Bovie and an oscillating saw was used complete the femoral neck cut. The femoral head was then removed and sized. We then turned our attention to the acetabulum. A Bovie was used to make a perforation in the anterior joint capsule and a Garnett retractor was placed this was repeated in the 6 o'clock position and a wide chele was placed there. With a long handled knife the labral and pulvinar tissue were removed. We then registered the acetabulum with the pointing array and confirmed our landmarks. Once the socket was thoroughly prepared and labral tissue and pulvinar was removed we single reamed with the robotic arm. We then used the robotic arm to position the acetabular implant and impacted it into place under robotic guidance. We then proceeded to place a posterior superior screw by drilling first measuring and inserting the screw. We then inserted a trial liner. And turned our attention back to the femur at this point a femoral elevator was used. As well as a pointed wide Hohmann around the lesser trochanter and a Hohmann to help retract the gluteus medius. A box chisel was used to remove excess lateral neck followed by a canal finder and a lateralizing reamer. This was followed by sequential broaches. Attention was made of the version within the canal based on preoperative templating. Once the final broach was seated we then trialed reduced the hip it was determined that a 127 degree neck angle with a +4 neck length was the appropriate size. We then checked stability with shuck testing as well as flexion and internal rotation. then proceeded with hip extension and checked leg lengths at the knees and heels as well as with the trochanteric checkpoint and knee EKG lead. At this point trials were removed. A liner was inserted to the cup. The femoral stem was inserted. We re-trialed and then proceeded to impact the femoral head onto the Luis taper. We then surgically reduce the hip check stability again and leg lengths and were satisfied. Betadine rinse was allowed to sit for 5 minutes while everyone changed their gloves. Thorough irrigation was performed. Followed by closure of the external rotators with #2 FiberWire followed by closure of gluteal fascia with #1 Ethibond. 0 Vicryl fat stitches and 2-0 Vicryl subcutaneous stitches and ayden in the skin. [place] were placed in the skin pin sites over the iliac crest and dressed with a Mepilex dressing. The main incision was dressed with a Mepilex ag dressing and an abduction pillow was placed. Patient tolerated the procedure well there was no intraoperative complications all counts were correct and the patient was brought back to the PACU in stable condition
--- NOTE | 2023-04-07 10:17 | SUR.PHASEI ---
adductor pillow in place
--- NOTE | 2023-04-07 10:35 | RAD_ITS ---
STUDY: X-RAY - PELVIS AND RIGHT HIP REASON FOR EXAM: Female, 68 years old. Postop from hip replacement surgery TECHNIQUE: 2 views of the pelvis and hip. COMPARISON: None. FINDINGS: Patient is status post right hip replacement surgery. Components demonstrate anatomic alignment. No plain film evidence of postoperative complication. Normal postoperative soft tissue swelling and subcutaneous emphysema. RAD/Hip Min 2 Views (Portable) IMPRESSION: Anatomic alignment of replaced right hip joint. No postoperative complications Electronically Signed: Shravan Quintero MD at 11:06 EDT ,
--- NOTE | 2023-04-07 11:10 | DCINST_ITS ---
Discharge Instructions Diet Discharge Diet: No restrictions Dressing / Incision Call your doctor if you observe: Shortness of breath and Chest pain Additional Dressing/Incision Instructions:: Do not shower 72hrs. Begin daily showering warm water antibacterial soap postop day #3( 72hrs Post-operatively) and then daily. Leave the dressing on for 72 hours postoperatively then may remove prior to first shower and change dressing daily after this until no drainage for 2 consecutive days then may leave open to air. Follow hip precautions that were reviewed in hospital. Wear compression stockings, may remove at night. Start physical therapy as directed in hospital. Follow prescriptions instructions do not take any other pain medication or differ dosing without consulting your physician. Do not take oral NSAIDs until blood thinner has been completed , then may begin the day after completion if needed . Call Dr. Wetzel's office with any concerns. Follow Up Care Please Follow Up With: Cayetano Wetzel DO When: 2 weeks Test Results: Test results from this visit will be discussed in further detail at your follow- up appointment, if applicable. Discharge Plan Admission Primary Reason for Your Visit: Right total hip arthroplasty Attending Provider: Cayetano Wetzel Primary Care Provider: Miranda Acuna Discharge Orders/Prescriptions Prescriptions: New acetaminophen [acetaminophen] 500 mg tablet 1,000 mg PO Q6H PRN Qty: 100 0RF cephalexin [cephalexin] 500 mg capsule 1,000 mg PO Q8 Qty: 4 0RF Rx Instructions: take 2 tabs at 9:00 pm and 2 tabs after 5 am when you wake up Eliquis 2.5 mg tablet 2.5 mg PO BID Qty: 42 0RF Rx Instructions: Begin morning after surgery oxycodone 5 mg tablet 5 - 10 mg PO Q4H PRN (Reason: pain) 7 Days Qty: 60 0RF Continued trazodone 50 mg tablet 50 - 100 mg PO PRN PRN (Reason: Sleep) anastrozole 1 mg tablet 1 mg PO DAILY fluoxetine 40 mg capsule 40 mg PO DAILY ascorbic acid (vitamin C) 500 MG tablet 500 mg PO DAILY calcium carbonate-vitamin D3 1 EACH tablet 1 ea PO BID omega-3 fatty acids-fish oil 1 EACH capsule 1 ea PO BID [id number] 1 EACH tablet 1 ea PO DAILY Referrals / Follow Up: Miranda Acuna MD [Primary Care Provider] - Disposition Disposition (needs filled in before D/C Order can be placed): Home, Self Care
[2023-04-07] MEDS: oxyCODONE 5 MG Tablet PO (12:07)
[2023-04-07] MEDS: Ketorolac 30 MG/ML Syringe 15 MG IV (13:01)
[2023-04-07] MEDS: Cefazolin 1 GM/50 ML BAG IV (13:04)
== END 2023-04-07 14:30 | disposition home or self-care (01) ==
LOC: SDC 05:27 → AC 05:28
PROVIDERS: Anesthesiology; PCP Family Medicine; Referring Provider Orthopaedic Surgery; Visit Provider Orthopaedic Surgery
PROC: 8E0Y0CZ Robotic Assisted Procedure of Lower Extremity, Open Approach (ICD-10-PCS; CPT 27130; principal; 2023-04-07 07:00)
DX: M16.11 Unilateral primary osteoarthritis, right hip (principal); Z79.01 Long term (current) use of anticoagulants; Z79.899 Other long term (current) drug therapy
CPT/HCPCS: 27130; S2900; 01214; 36415; 73502; 80048; 82962; 82985; 83036; 83735; 85025; 85610; 85730; 86850; 86900; 86901; 87077; 87081; 88305; 88311; 93005; 97162; C1776; J7120; J2405; J3475

== ENCOUNTER → 2023-05-06 | Outpatient (CLI) | payer MEDICARE, BC, SELFPAY ==
[2023-05-06 10:46] LABS: Absolute Lymphocyte Count 1.32 X10^3/uL (0.83-4.51); Absolute Neutrophil Count 2.1 X10^3/uL (2.0-7.7); Basophil# 0.02 X10^3/uL; Basophil% 0.5 % (0-1); Eosinophil# 0.24 X10^3/uL; Hematocrit 36.4 % (37-47); Hemoglobin 10.9 g/dL (12.0-15.0); Lymphocyte # 1.32 X10^3/ul (0.83-4.51); Lymphocyte % 32.8 % (19-41); Mean Corp Hgb Conc 29.9 g/dL (32-36); Mean Corpuscular Hgb 26.8 pg (27.0-32.0); Mean Corpuscular Volume 89.7 fL (81-99); Mean Platelet Vol. 10.8 fl (6.2-12.0); Monocyte# 0.36 X10^3/uL; NRBC Flagged by Analyzer 0 % (0-5); Neutrophil # 2.07 X10^3/uL (2.7-7.7); Neutrophil % 51.5 % (47-70); Platelet Count 284 K/mm3 (150-450); RBC Distribution Width CV 13.1 % (11.6-14.6); Red Blood Count 4.06 M/mm3 (4.2-5.4)
[2023-05-06 11:26] LABS: ALB/GLOB Ratio 0.9 RATIO (0.9-2.4); AST(SGOT) 26 U/L (15-37); Alanine Aminotransfer ALT/SGPT 25 U/L (13-56); Albumin, Serum 3.2 g/dL (3.2-5.0); Alkaline Phosphatase 125 U/L (45-117); Anion Gap 6 (5-15); BUN 18 mg/dL (7-18); BUN/Creat Ratio 18.9 RATIO (10-20); Chloride 110 mmol/L (98-107); Cholesterol 186 mg/dL (200); Creatinine, Serum 0.95 mg/dL (0.55-1.02); EST Glomerular Filtration Rate 62 mL/min (>60); Est Glom Filt Rate - Afr Amer 75 mL/min (>60); Globulin 3.5 g/dL (2.2-4.2); Glucose 80 mg/dL (74-106); High Density Lipoprotein 64 mg/dL; Potassium 4.2 mmol/L (3.5-5.1); Protein, Total 6.7 g/dL (6.4-8.2); Sodium Level 140 mmol/L (136-145); Triglycerides 97 mg/dL; Very Low Density Lipoprotein 19 mg/dL (5-40)
[2023-05-06 11:40] LABS: Vitamin D,25 Hydroxy 91.7 ng/mL
[2023-05-06 19:22] LABS: Ferritin 38 ng/mL (8-252); Iron 37 ug/dL (50-170)
== END | disposition home or self-care (01) ==
PROVIDERS: PCP Nurse Practitioner Family; Referring Provider Nurse Practitioner Family; Visit Provider Nurse Practitioner Family
DX: Z00.00 Encounter for general adult medical examination without abnormal findings (principal); D64.9 Anemia, unspecified; R53.83 Other fatigue; E55.9 Vitamin D deficiency, unspecified; E78.5 Hyperlipidemia, unspecified
CPT/HCPCS: 36415; 80053; 80061; 82306; 82728; 83540; 85025

== ENCOUNTER 2023-05-07 15:00 | Outpatient (RCR) | payer MEDICARE, BC, SELFPAY ==
--- NOTE | 2023-04-09 15:04 | HP.PTEVAL_ITS ---
Patient's Visit Information IVON LAGUNAS is a 68 year old F referred to Physical Therapy by Dr. Cayetano Wetzel DO with a diagnosis of R ANJU 04/07/23. Date of Evaluation: 04/09/23 Physical Therapist: Paco Lazo, PT, ATC - Visit Plan Frequency: 2-3x /Week Duration: 4-6 Weeks Plan: R hip strengthening, core stab ex's, balance and proprio, nustep, and HEP - Subjective DOS: 04/07/23. Pt reports she had a R ANJU performed at that time. Pt notes she was exercising on the date of 08/21/22 and then went home. Pt notes she experienced severe pain once she was home that never went away. Pt reports she had pain injections after the pain started but never felt relief. Pt notes she is glad to have had the surgery at this time. Pt reports she works in [place] at [employer] and has to be able to tolerate standing for 5 hours per day. No tingli ng or numbness in R LE. Pt reports sleep difficulty at this time without the use of her pain meds. Pt reports she only has 2 steps into her house which she is able to negotiate one step at a time. Pt notes she used to go into her basement at home prior to having pain but has not attempted to at this time. 5/10 pain at rest, 9/10 at worst (standing up from sitting down) - Pain R hip Pain Intensity (Out of 10): 5 Pain Intensity Range: 9 - Objective Neuro: B LE sensation is WNL to light touch. TUG; 35.41. ROM: R hip flex= 50, ext= 0; L hip flex= 70, ext= 10 degrees. MMT: L hip flex= 13, ext= 15 #F; R hip flex= 3, ext = 5 #F. Gait: Pt is able to ambulate 170 feet with rolling walker until needing to sit secondary to pain - Balance/Special Test Scores WOMAC Total Score: 63 WOMAC Percentatge: 34.3800 - Goals Goal 1:: Decrease R hip pain x 50% to aid with sleep Goal Time Frame: 4-6 Weeks Goal 2:: Increase R hip strength x 15 #F to aid with stair negotiation. Goal Time Frame: 4-6 Weeks Goal 3:: Pt will be able to negotiate 10 stairs without UE's reciprocally to aid with community I Goal Time Frame: 4-6 Weeks Goal 4:: I with HEP Goal Time Frame: 4-6 Weeks - Rehabilitation Potential Physical Therapy Diagnosis: Pt has R hip pain, weakness, and limited ROM secondary to R ANJU Rehabilitation Potential: Good - Anticipated Interventions Patient/Client Instruction: Educate patient on: Condition, Plan of Care For the Purpose of:: To improve self management Therapeutic Exercise to Include: Strength training, Endurance training, Balance training, Gait and locomotor training, Dynamic Lumbar Stabilization For the Purpose of:: To decrease pain, To increase ROM, To improve muscle performance and motor function Cryotherapy (ice pack, ice massage): Yes For the Purpose of:: To decrease pain Thank you for the opportunity to evaluate your patient. For Medicare and Medicare HMO plans, please review the plan of care and approve it. It will need to be FAXED BACK to us at [phone] for Medicare purposes. For Medicare only, by signing this I certify the plan of care. Please let me know if there are questions or concerns regarding this plan of c are. Physician Signature: Date:
--- NOTE | 2023-05-07 15:33 | HP.PTDCSUM ---
It has been my pleasure to treat IVON LAGUNAS referred by Dr. Cayetano Wetzel DO, with the diagnosis of R ANJU 04/07/23 for a total of 9 visit(s). Discharge Date: Please see the following information for a summary of their discharge status. Subjective: Pt reports she has some minor pain on the lateral aspect of R hip R hip Pain Intensity (Out of 10): 2 % Improvement: 90 Objective/Function: R hip pain is 1-2/10. ROM: R hip flex= 90, ext= 10 degrees. MMT: R hip flex= 10, ext= 30 #F. TU seconds. Stairs: Pt can negotiate 10 stairs without difficulty Goal 1:: Decrease R hip pain x 50% to aid with sleep Goal Progress: Goal Met Goal 2:: Increase R hip strength x 15 #F to aid with stair negotiation. Goal Progress: Goal Met Goal 3:: Pt will be able to negotiate 10 stairs without UE's reciprocally to aid with community I Goal Progress: Goal Met Goal 4:: I with HEP Goal Progress: Goal Met Plan: Discharge to [facility] If there are questions or concerns regarding this patient's physical therapy, please feel free to call me at [phone]. Thank you for the referral of this patient. Sincerely, Paco Lazo, PT, ATC Balance/Gait/Functional tests - Balance/Special Test Scores WOMAC Total Score: 23 WOMAC Percentage: 76.0500
== END 2023-05-07 19:00 | disposition home or self-care (01) ==
LOC: PT 15:00
PROVIDERS: PCP Family Medicine; Referring Provider Orthopaedic Surgery; Visit Provider Orthopaedic Surgery
DX: M16.11 Unilateral primary osteoarthritis, right hip (principal)
CPT/HCPCS: 97110; 97116; 97161; 97164

== ENCOUNTER 2023-08-27 09:57 | Outpatient (RCR) | payer MEDICARE, BC, SELFPAY ==
--- NOTE | 2023-09-08 14:42 | HP.PTEVAL_ITS ---
Patient's Visit Information Visit Information Visit Information: IVON LAGUNAS is a 68 year old F referred to Physical Therapy by Dr. Cayetano Wetzel DO with a diagnosis of R hip pain. Date of Evaluation: 08/27/23 Physical Therapist: Yakov Walsh DPT Visit Plan Frequency: 1x/Week Duration: 6 Weeks Plan: Start with glute medius and kenrick strengthening to reduce stress to greater trochanter with all recreational activities. Pt. given HEP to for above exercises. Pt. is to complete then come back in a few weeks. Subjective Subjective: Pt. is here today for her initial evaluation with diagnosis of R hip pain. Pt. reports having some continued pain at her lateral R hip. Pt. reports she always has some pain, but seems to be worse with standing and walking. Pt. has some pain with lying on her side and with getting up and down from a chair as well. Denies N/T. Pt. has been trying to do some strengthening at home and in classes, but has had to hold off some. Pt. is hopeful to reduce symptoms in order to get back to all recreational activities without limitations. Pain R lateral hip: Pain Intensity (Out of 10): 2 Pain Intensity Range: 0 and 5 Objective Objective: POSTURE: Pt. has pretty good posture in stance, slight flexed posture. Equal iliac crest heights PALPATION: pt. has tenderness along trochanteric bursa, and along IT band region. NEURO: Normal throughout. Normal sensation, normal DTR of BLEs. ROM: R hiP: flexion 110deg, abd 45deg, ER 45deg, IR DNT. Tightness with hip adduction. MMT: R hip: flexion 18#, abd 7#, ext 21#. L hip: flexion 24#, abd 15#, ext 25#. Core strength- fair. GAIT: Pt. ambulated with some mild lateral hip sway, not [place] fully. Pt. did not use an AD this date with gait. STAIRS: mild increase nW with ascending with 2 HR. Balance/Special Test Scores Lower Extremity Functional Score: 52 Goals Goal 1:: LTG: Pt. to be I with HEP for hip strengthening. Goal Time Frame: 4-6 Weeks Goal 2:: LTG: Pt. to have increased R hip strength symmetrical to L side. Goal Time Frame: 4-6 Weeks Goal 3:: LTG: Pt. to be able to ambulate unlimited distances without increase in symptoms. Goal Time Frame: 4-6 Weeks Goal 4:: LTG: Pt. to complete all gym classes without increase in R hip pain. Goal Time Frame: 4-6 Weeks Rehabilitation Potential Physical Therapy Diagnosis: Pt. has signs and symptoms consistent with R hip pain. pt. has some glute medius weakness and IT band tightness. She would benefit from PT to address the above limitations. Rehabilitation Potential: Excellent Anticipated Interventions Patient/Client Instruction: Educate patient on: Condition, Plan of Care, Risk Factors and Benefits of Fitness Program For the Purpose of:: To foster healthy habits, To improve decision making, To facilitate caregiver knowledge, To improve self management, To prevent re- injury, To improve ability to perform tasks related to life management and To improve tolerance to ADL's Therapeutic Exercise to Include: Strength training, Endurance training, Body mechanics, Postural training and Gait and locomotor training For the Purpose of:: To decrease pain, To increase ROM, To increase oxygenation perfusion, To improve muscle performance and motor function, To improve ability to perform ADL's, To improve gait and locomotor functions, To improve health of tissue, To decrease soft tissue restriction and To increase flexibility/ROM Text: Thank you for the opportunity to evaluate your patient. For Medicare and Medicare HMO plans, please review the plan of care and approve it. It will need to be FAXED BACK to us at [phone] for Medicare purposes. For Medicare only, by signing this I certify the plan of care. Please let me know if there are questions or concerns regarding this plan of care. Physician Signature: Date:
== END 2023-08-27 19:00 | disposition home or self-care (01) ==
LOC: PT 09:57
PROVIDERS: PCP Nurse Practitioner Family; Referring Provider Orthopaedic Surgery; Visit Provider Orthopaedic Surgery
DX: M25.551 Pain in right hip (principal)
CPT/HCPCS: 97110; 97161

== ENCOUNTER → 2024-02-16 | Outpatient (CLI) | payer MEDICARE, BC, SELFPAY ==
--- NOTE | 2024-02-16 11:44 | RAD_ITS ---
INDICATION: SOB AND PALPITATIONS EXAMINATION/TECHNIQUE: X-RAY - XR Chest 2 Views COMPARISON: No relevant prior comparison study available FINDINGS: LINES/DEVICES: None. LUNGS: The lungs are well expanded. No consolidation, edema or effusion. No pneumothorax. MEDIASTINUM AND CARDIOVASCULAR STRUCTURES: Cardiac silhouette not enlarged. Central airways and mediastinal contour are unremarkable. BONES AND SOFT TISSUES: No acute abnormality. Multilevel degenerative changes of the spine. RAD/Chest PA and Lateral IMPRESSION: No acute pulmonary finding. Electronically Signed: Pj Davis MD at 6:57 EDT ,
[2024-02-16 12:41] LABS: Absolute Lymphocyte Count 1.22 X10^3/uL (0.83-4.51); Basophil# 0.04 X10^3/uL; Basophil% 1.1 % (0-1); Eosinophil# 0.17 X10^3/uL; Eosinophils% 4.5 % (0-5); Hematocrit 41.2 % (37-47); Hemoglobin 13.3 g/dL (12.0-15.0); Lymphocyte # 1.22 X10^3/ul (0.83-4.51); Lymphocyte % 32.6 % (19-41); Mean Corp Hgb Conc 32.3 g/dL (32-36); Mean Corpuscular Hgb 28.6 pg (27.0-32.0); Mean Corpuscular Volume 88.6 fL (81-99); Mean Platelet Vol. 11.3 fl (6.2-12.0); Monocyte# 0.34 X10^3/uL; Monocyte% 9.1 % (0-10); NRBC Flagged by Analyzer 0 % (0-5); Neutrophil # 1.96 X10^3/uL (2.7-7.7); Neutrophil % 52.4 % (47-70); Platelet Count 243 K/mm3 (150-450); RBC Distribution Width CV 14.1 % (11.6-14.6); RBC Distribution Width SD 45.2 fl (35.1-43.9); Red Blood Count 4.65 M/mm3 (4.2-5.4); White Blood Count 3.7 K/mm3 (4.4-11.0)
[2024-02-16 13:20] LABS: ALB/GLOB Ratio 1.1 RATIO (0.9-2.4); AST(SGOT) 27 U/L (15-37); Alanine Aminotransfer ALT/SGPT 28 U/L (13-56); Albumin, Serum 3.6 g/dL (3.2-5.0); Alkaline Phosphatase 69 U/L (45-117); Anion Gap 5 (5-15); BUN 18 mg/dL (7-18); BUN/Creat Ratio 19.2 RATIO (10-20); Calcium,Total 9.5 mg/dL (8.5-10.1); Chloride 107 mmol/L (98-107); Creatinine, Serum 0.94 mg/dL (0.55-1.02); EST Glomerular Filtration Rate 63 mL/min (>60); Est Glom Filt Rate - Afr Amer 76 mL/min (>60); Ferritin 27 ng/mL (8-252); Globulin 3.3 g/dL (2.2-4.2); Glucose 89 mg/dL (74-106); Iron 70 ug/dL (50-170); Magnesium 2.1 mg/dL (1.6-2.6); Potassium 4.3 mmol/L (3.5-5.1); Protein, Total 6.9 g/dL (6.4-8.2); Sodium Level 139 mmol/L (136-145)
== END | disposition home or self-care (01) ==
LOC: LAB.FUTURE 10:48 → BFHLAB 11:01
PROVIDERS: PCP Nurse Practitioner Family; Visit Provider Nurse Practitioner Family
DX: R06.02 Shortness of breath (principal); R00.2 Palpitations; E61.1 Iron deficiency
CPT/HCPCS: 36415; 71046; 80053; 82728; 83540; 83735; 85025

== ENCOUNTER → 2024-03-02 | Outpatient (CLI) | payer MEDICARE, BC, SELFPAY | END | disposition home or self-care (01) | LOC: PSN 08:27 | PROVIDERS: PCP Nurse Practitioner Family; Referring Provider Nurse Practitioner Family; Visit Provider Nurse Practitioner Family | DX: R06.02 Shortness of breath (principal); R00.2 Palpitations | CPT/HCPCS: 93225; 93226 ==

== ENCOUNTER → 2024-03-18 | Outpatient (CLI) | payer MEDICARE, BC, SELFPAY ==
--- NOTE | 2024-03-18 12:32 | STEWCON_ITS ---
Reason For Study: PALPS, CHEST PAIN Stress Results Protocol: Peterson Protocol WITH DEFINITY Maximum Predicted HR: 150 bpm Target HR: 128 bpm % Maximum Predicted HR: 87 % DurationHeart Rate Stage (mm:ss) (bpm) BP BASELINE 59 140/70 STAGE 1 3:00 96 140/68 STAGE 2 3:00 105 144/70 STAGE 3 3:00 130 168/78 RECOVERY 73 130/70 Stress Duration: 9:00 mm:ss Maximum Stress HR: 130 bpm Baseline Echocardiogram Findings Stress Echo Wall motion Data Resting WM Intermediate WM Stress WM Doppler Measurements & Calculations TR max valeriy: 262.4 cm/sec TR max P.5 mmHg ECHO/Stress Test Echo W/Contrast Interpretation Summary Exercise stress echo. Reason for evaluation palpitations and chest pain. Stress EKG. Resting electrocardiogram demonstrates sinus rhythm with a rate of 57 bpm. Rest ing blood pressure is 140/70 mmHg. The patient exercised according to regular Peterson protocol for tota l duration of 9 minutes. The maximum heart rate attained was 133 bpm which was 88% of max impac cody heart rate the maximum workload was 10.1 metabolic equivalents. At rest there were no ST or T wave changes noted suggest ischemia at peak exercise there was approximately [address] depression noted in leads V4, V5 and V6 suggestive but not diagnostic of ischemia. No clinical araceli na was noted. The immediate post recovery. EKG changes returned to normal. The peak blood pressur e was 168/78 which was a good blood pressure response to exercise the rate-pressure product was 22 ,000. Stress echocardiogram. Resting echocardiogram was performed with Definity enhan cement demonstrated ejection fraction of 60% at rest. At peak exercise there was thickening of all matthews reduction of low ventricular cavity size and peaking of ejection fraction of 70%. No wall mo tion abnormalities were noted. Conclusion: Exercise stress echo with equivocal EKG changes but normal echocardiographic im ages and no clinical angina noted at a high workload. Ordering Physician: Crystal Vale Referring Physician: Crystal Vale Performed By: Mirian Charles RDCS
== END | disposition home or self-care (01) ==
LOC: CVS 12:31
PROVIDERS: PCP Nurse Practitioner Family; Referring Provider Nurse Practitioner Family; Visit Provider Nurse Practitioner Family
DX: R06.02 Shortness of breath (principal); R00.2 Palpitations
CPT/HCPCS: 93017; 93350; Q9957; A4216; C8928